=== PATIENT | male | born 1975 | race Caucasian/White ===

== ENCOUNTER → 2019-06-28 | Outpatient (CLI) | payer OTHER ==
[~2019-06-28] MED LIST: IOHEXOL 240 MG/ML 50ML VIAL. ONE; IOHEXOL 300 MG/ML 75 ML VIAL. IV ONE
[2019-06-28] MEDS: IOHEXOL 300 MG/ML 75 ML VIAL. IV ONE (12:08)
--- NOTE | 2019-06-28 14:44 | RAD ---
EXAM: CT ABDOMEN/PELVIS WITH CONTRAST. HISTORY: Abdominal pain. TECHNIQUE: Computed tomography of the abdomen and pelvis was performed after the intravenous administration of iodinated contrast. COMPARISON: None. FINDINGS: Lung windows through the visualized portions of the bases reveal mild atelectasis. Bone windows reveal no suspicious lesions. There are limitations from limited contrast opacification. There is a calcified granuloma in the spleen. The liver, gallbladder, adrenal glands, pancreas and kidneys are unremarkable. There are no pathologically enlarged lymph nodes. The appendix is not inflamed. There is no small bowel obstruction. A small left inguinal hernia contains only fat. IMPRESSION: 1. No cause for acute pain is identified. 2. Small left inguinal hernia containing only fat. *One or more of the following individualized dose reduction techniques were utilized for this examination: 1. Automated exposure control. 2. Adjustment of the mA and/or kV according to patient size. 3. Use of iterative reconstruction technique. Electronically signed by: Julio César Barajas MD (06/28/2019 2:41 PM) [facility]
== END | disposition home or self-care (01) ==
LOC: CT 10:30
PROVIDERS: ATTEND Family Medicine
DX: K40.90 Unilateral inguinal hernia, without obstruction or gangrene, not specified as recurrent (principal); J98.11 Atelectasis; D73.89 Other diseases of spleen
CPT/HCPCS: 74177; Q9967